=== PATIENT | female | born 1995 | race African-American/Black ===

== ENCOUNTER 2019-06-22 18:30 | Emergency (ER) | payer SELFPAY ==
[2019-06-22 19:10] VITALS: BP 115/72; PULSE 87; RESP 20; TEMP 98.3; O2SAT 100
== END 2019-06-22 19:43 | disposition home or self-care (01) | DRG 948 ==
LOC: ED 18:30
DX: R53.83 Other fatigue (principal); R42 Dizziness and giddiness; R53.1 Weakness
CPT/HCPCS: 99282